=== PATIENT | female | born 1945 | race Hispanic/Latino ===

== ENCOUNTER → 2021-06-07 | Outpatient (CLI) | payer MEDICARE | LOC: RAD 13:20 | PROVIDERS: ATTEND Internal Medicine | DX: M47.816 Spondylosis without myelopathy or radiculopathy, lumbar region (principal) | CPT/HCPCS: 72110 ==

== ENCOUNTER → 2021-08-05 | Outpatient (CLI) | payer MEDICARE, OTHER | LOC: MRI 11:02 | PROVIDERS: ATTEND Internal Medicine | DX: M47.816 Spondylosis without myelopathy or radiculopathy, lumbar region (principal) | CPT/HCPCS: 70450; 72110; 72148 ==